=== PATIENT | male | born 1990 | race Caucasian/White ===

== ENCOUNTER 2016-10-28 13:28 | Emergency (ER) | payer BC ==
[~2016-10-28] VITALS: Ht 175.3 cm; Wt 88.4 kg
[~2016-10-28 13:28] MED LIST: ZOFRAN ODT8 MG PO
[2016-10-28 13:58] LABS: HEMATOCRIT 47.9 % (38.0-50.0); MCV 85.1 FL (86-99); MEAN PLAT.VOLUME 8.9 uM^3 (9.0-12.4); PLATELET COUNT 320 K/uL (156-360); RBC DIS.WIDTH-CV 12.7 % (11.8-14.6); RBC DIS.WIDTH-SD 38.7 % (39-53); RED BLOOD COUNT 5.63 M/uL (4.00-5.50); WHITE BLOOD COUNT 24.5 K/uL (4.1-10.2)
[2016-10-28 14:07] LABS: CHLORIDE 110 mEq/L (99-109); POTASSIUM 4.1 mEq/L (3.7-5.4); SODIUM 140 mEq/L (136-147)
[2016-10-28 14:09] LABS: GLUCOSE 105 mg/dL (70-99)
[2016-10-28 14:10] LABS: ANION GAP 11 MEQ/L (2-14)
[2016-10-28 14:11] LABS: TOTAL BILIRUBIN 0.6 mg/dL (0.0-1.0)
[2016-10-28 14:13] LABS: ALKALINE PHOSPHATASE 76 IU/L (3-129); GFR ESTIMATE (CALCULATED) > 59 mL/min/
[2016-10-28 14:14] LABS: UREA NITROGEN (BUN) 13 mg/dL (9-23)
[2016-10-28 14:39] LABS: ADD MIUA? YES; BILIRUBIN NEGATIVE; BLOOD MODERATE; COLOR YELLOW ((YELLOW)); GLUCOSE (STRIP) NEGATIVE; KETONES 5; LEUKOCYTES NEGATIVE; NITRITE NEGATIVE; PROTEIN (STRIP) 100; SPECIFIC GRAVITY 1.031 (1.000-1.030); UROBILINOGEN 0.2 MG/DL (0.2-1.0)
[2016-10-28 15:05] LABS: BACTERIA NONE SEEN /HPF; EPITHELIAL CELLS NONE SEEN /HPF; MUCUS 3+ /LPF; RED BLOOD CELLS 0-5 /HPF (0-5); UCUL ADDED? NO; WHITE BLOOD CELLS 0-5 /HPF (0-5)
[2016-10-28 17:36] LABS: C DIFF TOXIN POSITIVE (NEGATIVE)
[2016-10-28 17:42] LABS: PROBE CHECK PASS
[2016-10-28] MEDS ORDERED: VANCOCIN HCL125 MG PO (19:03)
[2016-10-28 19:29] VITALS: BP 136/80
== END 2016-10-28 19:30 | disposition home or self-care (01) ==
LOC: EME 13:28
PROVIDERS: Physician Assistant
DX: A04.7 Enterocolitis due to Clostridium difficile (principal); Z86.19 Personal history of other infectious and parasitic diseases
CPT/HCPCS: 80053; 81003; 83605; 85027; 87040; 87077; 87177; 87186; 87493; 87506; 87801; 99281; 99284; J2405; J7030

== ENCOUNTER 2017-05-07 22:15 | Emergency (ER) | payer OTHER ==
[~2017-05-07] VITALS: Ht 175.3 cm; Wt 93.9 kg
[~2017-05-07 22:15] MED LIST changes: +VANCOCIN HCL125 MG PO
[2017-05-07 22:37] VITALS: BP 139/74
== END 2017-05-08 01:30 | disposition home or self-care (01) ==
LOC: EME 22:15
PROC: 3E0234Z Introduction of Serum, Toxoid and Vaccine into Muscle, Percutaneous Approach (ICD-10-PCS; principal; 2017-05-08)
DX: T22.20XA Burn of second degree of shoulder and upper limb, except wrist and hand, unspecified site, initial encounter (principal); T31.0 Burns involving less than 10% of body surface; X08.8XXA Exposure to other specified smoke, fire and flames, initial encounter; Y99.0 Civilian activity done for income or pay; Z23 Encounter for immunization
CPT/HCPCS: 99281; 99284